=== PATIENT | male | born 2005 | race Caucasian/White ===

== ENCOUNTER 2025-01-07 14:05 | Emergency (ER) | payer MEDICARE, SELFPAY ==
[2025-01-07 14:32] VITALS: BP 120/54
[2025-01-07 15:03] LABS: % Basophils 0.4 % (0-2); % Eosinophils 0.7 % (0-6); % Immature Granulocytes 0.1 % (0-0.5); % Lymphocytes 19.9 % (20.5-51.1); % Monocytes 5.3 % (1.7-9.3); % Neutrophils 73.6 % (42.2-75.2); Absolute Eosinophils 0.1 10^3/uL (0-0.7); Absolute Lymphocytes 1.4 10^3/uL (1.2-3.4); Absolute Monocytes 0.4 10^3/uL (0.1-0.6); Absolute Neutrophils 5.3 10^3/uL (1.4-6.5); Hematocrit 45.5 % (39.0-52.0); Hemoglobin 15.9 g/dL (13.0-18.0); Mean Corp Hgb Conc. 34.9 g/dL (33.0-37.0); Mean Corpuscular Hgb 29.9 pg (27.0-31.0); Mean Corpuscular Volume 85.5 fL (80.0-94.0); Mean Platelet Volume 9.7 fL (7.4-10.4); Nucleated Red Blood Cells % 0 % (-); Platelet Count 216 10^3/uL (130-400); Red Blood Cell Count 5.32 10^6/uL (4.70-6.10); Red Cell Dist. Width 12.4 % (11.5-14.5); White Blood Cell Count 7.2 10^3/uL (4.8-10.8)
[2025-01-07 15:18] LABS: ALT (SGPT) 29 U/L (0-50); AST (SGOT) 27 U/L (17-59); Albumin 5.2 g/dl (3.5-5.0); Alkaline Phosphatase 61 U/L (38-126); Blood Urea Nitrogen 24 mg/dl (9-20); Calcium 9.6 mg/dl (8.4-10.2); Carbon Dioxide 23 mmol/L (22-30); Chloride 106 mmol/L (98-107); Glucose 98 mg/dl (70-99); Potassium 4.8 mmol/L (3.5-5.1); Sodium 141 mmol/L (135-145); Total Bilirubin 0.7 mg/dl (0.2-1.3); Total Protein 7.5 g/dl (6.3-8.2); eGFR > 60.00
[2025-01-07 15:28] LABS: Troponin I < 0.012 ng/ml
--- NOTE | 2025-01-07 15:59 | ED.GENMED ---
History of Present Illness
General
Chief Complaint: Chest Pain
Source: patient and family
Exam Limitations: none
Time Seen by Provider: 01/07/25 15:51
History of Present Illness
History of Present Illness:
See MDM
Past History
Past History
ED Past Medical History: Asthma
ED Past Surgical History: None
Social History
Tobacco: Non-smoker
Alcohol: None
Phy Exam
Physical Exam
Physical Exam:
See MDM
Scores
Heart Score for Chest Pain Patients
STEMI patient?: No
History: Slightly or Non-Suspicious
ECG: Normal
Age: </= 45 years
Risk Factors: No Risk Factors
Troponin: </= Normal Limit
Heart Score for Chest Pain Patients: 0
Heart Score Risk: 2.5% MACE over next 6 weeks
Course
Orders/Labs/Results
Orders:
Orders
01/07/25 14:06
Electrocardiogram (*1) Urgent
Reason for Study: Chest Pain
EKG- Treatment ONCE
01/07/25 14:38
Complete Blood Count/With Diff Urgent
Comprehensive Metabolic Panel Urgent
Troponin I Urgent
01/07/25 15:56
CR Chest - 2 Views Urgent
Comment:
Reason For Exam: left side chest pain
Abnormal Lab Results
01/07/25
14:38
Lymphocytes % 19.9 L %
(20.5-51.1)
BUN 24 H mg/dl
(9-20)
Albumin 5.2 H g/dl
(3.5-5.0)
01/07/25 14:38
01/07/25 14:38
Vital Signs
Initial and Last Documented VS:
Initial Vital Signs
Temp Pulse Resp BP Pulse Ox
98.5 F 57 16 120/54 95
01/07/25 14:32 01/07/25 14:32 01/07/25 14:32 01/07/25 14:32 01/07/25 14:32
Last Documented Vital Signs
Temp Pulse Resp BP Pulse Ox
98.5 F 57 16 120/54 95
01/07/25 14:32 01/07/25 14:32 01/07/25 14:32 01/07/25 14:32 01/07/25 14:32
MDM/Problems Addressed
Differential Diagnosis Includes:
HPI and MDM Narrative:
19-year-old male presenting with mother for evaluation of left-sided chest pain. He noted the pain yesterday around 3 PM. There has been no exertional component. He thinks symptoms are actually worsening forward. He does lift weights but denies
any recent weight lifting over 2 days. He denies recent viral illness. He called the PCP and sent to the emergency department for evaluation. Patient states the left side of his chest feels swollen but he is otherwise back to baseline
On exam, he is well-appearing on there is mild tenderness to palpation of left costochondral joints which reproduces symptoms. We discussed likely costochondritis. Blood work including troponin were done prior to my assessment which were normal.
EKG without ischemic changes. Will obtain chest x-ray
Physical exam
General: Well appearing and non-toxic
HEENT: protecting airway
Neck: appears supple
CV: No evidence of cyanosis. Regular rate and rhythm. No murmur
Chest: Tenderness to left costochondral joints which reproduces symptoms
Resp: No accessory muscle use. Lungs clear
Abd: Non-distended
Extremities: No deformities
Neuro: alert
Psych: Normal affect
Skin: Intact
Problems Addressed including Acute and Chronic Conditions affecting care:
1. Costochondritis
Acuity: acute
Prognosis: stable
Details: Discussed NSAIDs and return precaution
Updates
Chest x-ray clear. Discussed return precautions
Differential Diagnosis (but not limited to): Costochondritis, noncardiac chest pain, muscle strain
Testing considered: D-dimer but he is neither tachycardic nor hypoxic
Drug therapy (if applicable): OTC meds, please see d/c instruction regarding Rx drugs
Amount and/or Complexity of Data Reviewed
Clinical info obtained from: Patient and mother
External data reviewed: N/A
Labs I independently reviewed (but not limited to): White blood cell count and troponin are normal
Radiology: x-ray independently reviewed: Chest x-ray clear
Pulse Ox: not hypoxic
EKG independently reviewed: Sinus rhythm, normal axis, no STEMI
Elevator Repairer: N/A
Critical Care: N/A
Risk of Complication:
Social Determinants of health: Good social support
Discussed with other providers: N/A
Escalation of Care includes Admit/Obs: After being observed in the Emergency Department, pt stable for discharge.
Occasional wrong word or 'sound a like' substitutions may have occurred due to the inherent limitations of voice recognition software. Read the chart carefully and recognize, using context, where substitutions have occurred.
*Critical Care Note
Total Time (30-74mins, 75-104mins- exclusive of procedures): Not Applicable
ED Attending Note
-
Portions of this chart may have been created with voice recognition software.� Occasional wrong word or��sound alike� substitutions may have occurred due to the inherent limitations of voice recognition software.
Discharge Plan
Departure
Patient Disposition: Home (Routine Discharge)
Date of Disposition: 01/07/25
Time of Disposition: 17:26
Patient with high blood pressure during this ER visit?: No
Discharge Problem:
Costochondritis, acute
Instructions: Costochondritis (DC)
Referrals:
Jody Zee PA-C [Family Provider] -
Activity Restrictions/Additional Instructions:
Please return for any worsening symptoms.
You may return at any time if you have further concerns.
Please follow up with your doctor at the first available appointment, preferably this week.
Thank you for choosing [facility].
Interventions
Interventions:
*Risk Screen - Suicide Last Done: 01/07/25 14:32
*General Assessment Last Done: 01/07/25 14:32
Discharge Date and Time
Print Language: TRISTANIAN
[2025-01-07 16:00] VITALS: BP 114/75
== END 2025-01-07 17:51 | disposition home or self-care (01) ==
LOC: EMR 14:05
PROVIDERS: Emergency Medicine; EMERGENCY PHYSICIAN Student in an Organized Health Care Education/Training Program; FAMILY PHYSICIAN Physician Assistant
DX: M94.0 Chondrocostal junction syndrome [Tietze] (principal); J45.909 Unspecified asthma, uncomplicated
CPT/HCPCS: 99283; 71046; 80053; 84484; 85025; 93005